=== PATIENT | male | born 1970 | race American Indian/Alaskan Native ===

== ENCOUNTER 2017-10-16 00:42 | Observation (INO) | payer OTHER ==
[2017-10-16] MEDS ORDERED: ASPIRIN PO ONE (00:59)
[2017-10-16 02:02] LABS: Basophils % (Auto) 0.2 % (0.0-1.8); Eosinophils # (Auto) 0.1 K/mm3 (0.0-0.4); Eosinophils % (Auto) 1.1 % (0.0-4.3); Hematocrit 43.9 % (35.5-45.6); Hemoglobin 14.6 gm/dl (11.8-15.2); Lymphocytes # (Auto) 1.8 K/mm3 (1.2-5.4); Lymphocytes % (Auto) 23.8 % (13.4-35.0); Mean Corpuscular HGB Conc 33 % (32-34); Mean Corpuscular Hemoglobin 26 pg (28-32); Mean Corpuscular Volume 79 fl (84-94); Monocytes # (Auto) 0.5 K/mm3 (0.0-0.8); Monocytes % (Auto) 6.9 % (0.0-7.3); Platelet Count 185 K/mm3 (140-440); Red Blood Count 5.53 M/mm3 (3.65-5.03); Red Cell Distribution Width 15.9 % (13.2-15.2)
[2017-10-16 02:11] LABS: BUN/Creatinine Ratio 14; Blood Urea Nitrogen 15 mg/dL (9-20); Calcium 8.9 mg/dL (8.4-10.2); Hemolysis Index 17
[2017-10-16 03:02] LABS: Lipase 39 units/L (13-60)
[2017-10-16 07:22] VITALS: BP 128/95
--- NOTE | 2017-10-16 07:23 | Emergency Department Report ---
ED Chest Pain HPI - General Chief Complaint: Chest Pain Stated Complaint: CHEST PAIN Time Seen by Provider: 10/16/17 07:01 Source: patient Mode of arrival: Ambulatory Limitations: No Limitations - History of Present Illness Initial Comments: Patient is a 47-year-old male who presents with complaints of chest pains 30 minutes prior to arrival. Patient states the pain is on the left side of his chest and nonradiating. Patient states the pain as a 7 out of 10. Patient states the pain is worse with movement and better with rest. He has past medical history of hypertension. She denies shortness of breath and fever and chills. MD Complaint: chest pain -: Sudden Pain Location: left chest Pain Radiation: none Severity: moderate Severity scale (0 -10): 7 Quality: pressure Consistency: constant Improves With: rest Worsens With: palpation, movement re: denies: nausea, vomting, diaphoresis, dyspnea, sense of impending doom Other Symptoms: denies: cough, fever, syncope, rash, acid taste in mouth, leg swelling, palpitations, burping Treatments Prior to Arrival: none Aspirin use within the Past 7 Days: (0) No - Related Data Home Medications Medication Instructions Recorded Confirmed Last Taken Amlodipine Besylate [Norvasc] 5 mg PO QDAY 10/16/17 10/16/17 Unknown Atenolol [Tenormin] 50 mg PO DAILY 10/16/17 10/16/17 Unknown Famotidine [Pepcid] 40 mg PO QHS 10/16/17 10/16/17 Unknown Previous Rx's Medication Instructions Recorded Last Taken Type Ibuprofen 400 mg PO Q8H PRN #20 tablet 10/16/17 Unknown Rx Allergies Allergy/AdvReac Type Severity Reaction Status Date / Time No Known Allergies Allergy Unverified 10/16/17 00:58 Heart Score - HEART Score History: Slightly suspicious EKG: Normal Age: 45-65 Risk factors: 1-2 risk factors Troponin: < normal limit HEART Score: 2 ED Review of Systems ROS: Stated complaint: CHEST PAIN Other details as noted in HPI Constitutional: denies: chills, fever Eyes: denies: eye pain, eye discharge, vision change ENT: denies: ear pain, throat pain Respiratory: denies: cough, shortness of breath, wheezing Cardiovascular: chest pain. denies: palpitations Endocrine: no symptoms reported Gastrointestinal: denies: abdominal pain, nausea, diarrhea Genitourinary: denies: urgency, dysuria Musculoskeletal: denies: back pain, joint swelling, arthralgia Skin: denies: rash, lesions Neurological: denies: headache, weakness, paresthesias Psychiatric: denies: anxiety, depression Hematological/Lymphatic: denies: easy bleeding, easy bruising ED Past Medical Hx - Past Medical History Previous Medical History?: Yes Hx Hypertension: Yes - Surgical History Past Surgical History?: Yes Additional Surgical History: hernia - Family History Family history: hypertension - Social History Smoking Status: Never Smoker Substance Use Type: None - Medications Home Medications: Home Medications Medication Instructions Recorded Confirmed Last Taken Type Amlodipine Besylate [Norvasc] 5 mg PO QDAY 10/16/17 10/16/17 Unknown History Atenolol [Tenormin] 50 mg PO DAILY 10/16/17 10/16/17 Unknown History Famotidine [Pepcid] 40 mg PO QHS 10/16/17 10/16/17 Unknown History Ibuprofen 400 mg PO Q8H PRN #20 tablet 10/16/17 Unknown Rx ED Physical Exam - General Limitations: No Limitations General appearance: alert, in no apparent distress - Head Head exam: Present: atraumatic, normocephalic - Eye Eye exam: Present: normal appearance - ENT ENT exam: Present: mucous membranes moist - Neck Neck exam: Present: normal inspection - Respiratory Respiratory exam: Present: normal lung sounds bilaterally, chest wall tenderness. Absent: respiratory distress - Cardiovascular Cardiovascular Exam: Present: regular rate, normal rhythm. Absent: systolic murmur, diastolic murmur, rubs, gallop - GI/Abdominal GI/Abdominal exam: Present: soft, normal bowel sounds - Rectal Rectal exam: Present: deferred - Extremities Exam Extremities exam: Present: normal inspection - Back Exam Back exam: Present: normal inspection - Neurological Exam Neurological exam: Present: alert, oriented X3 - Psychiatric Psychiatric exam: Present: normal affect, normal mood - Skin Skin exam: Present: warm, dry, intact, normal color. Absent: rash ED Course Vital Signs 10/16/17 10/16/17 10/16/17 00:56 02:59 03:00 Temperature 98.4 F Pulse Rate 80 68 62 Respiratory 17 19 17 Rate Blood Pressure 141/87 124/88 Blood Pressure [Left] O2 Sat by Pulse 97 97 98 Oximetry 10/16/17 10/16/17 03:01 07:21 Temperature 98.0 F Pulse Rate 62 Respiratory 18 12 Rate Blood Pressure Blood Pressure 128/95 [Left] O2 Sat by Pulse 98 100 Oximetry - Reevaluation(s) Reevaluation #1: Discussed plan with patient. Patient agreed to be admitted. We'll consult hospitalist. Hospitalist agreed to admit. 10/16/17 08:09 TORI score - Tori Score Age > 65: (0) No Aspirin use within the Past 7 Days: (0) No 3 or more CAD Risk Factors: (0) No 2 or more Angina events in past 24 hrs: (0) No Known CAD with more than 50% Stenosis: (0) No Elevated Cardiac Markers: (0) No ST Deviation Greater than 0.5mm: (0) No TORI Score: 0 ED Medical Decision Making - Lab Data Result diagrams: 10/16/17 01:31 10/16/17 01:31 - EKG Data -: EKG Interpreted by [facility] EKG shows normal: sinus rhythm, axis, intervals, QRS complexes, ST-T waves Rate: normal - EKG Data Interpretation: nonspecific ST-T wave long - Radiology Data Radiology results: pending - Medical Decision Making Vision 47-year-old male presents to emergency room with chest pain. Will admit patient for observation to rule out ACS. - Differential Diagnosis chest pain. ACS. Musculoskeletal. Chest wall pain. Critical care attestation.: If time is entered above; I have spent that time in minutes in the direct care of this critically ill patient, excluding procedure time. ED Disposition Clinical Impression: Chest pain Disposition: OP ADMIT IP TO THIS HOSP Is pt being admited?: Yes Does the pt Need Aspirin: No Condition: Fair Time of Disposition: 08:11
--- NOTE | 2017-10-16 08:37 | XRay Report ---
AP CHEST: HISTORY: chest pain No comparison. There is marked elevation of the left hemidiaphragm. It is unclear if this represents eventration or phrenic nerve paralysis. There is mild compression of the left lung base, otherwise, the lungs are clear. Heart and mediastinal structures are grossly normal. The thoracic cage is grossly intact. IMPRESSION: Marked elevation or eventration of the left hemidiaphragm. 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 If further evaluation is needed, 2 views of the chest or CT chest could be obtained.
--- NOTE | 2017-10-16 08:39 | History and Physical Report ---
History of Present Illness Date of examination: 10/16/17 Date of admission: 10/16/17 08:12 Chief complaint: Chest pain History of present illness: Patient with hypertension, obesity presents with chest pain. Left sided, 7/10, crampy pain, no radiation Past History Past Medical History: hypertension, other (Obesity) Past Surgical History: hernia repair Social history: single. denies: smoking, alcohol abuse, IV drug use Family history: CAD, hypertension Medications and Allergies Allergies Allergy/AdvReac Type Severity Reaction Status Date / Time No Known Allergies Allergy Unverified 10/16/17 00:58 Home Medications Medication Instructions Recorded Confirmed Last Taken Type Amlodipine Besylate [Norvasc] 5 mg PO QDAY 10/16/17 10/16/17 Unknown History Atenolol [Tenormin] 50 mg PO DAILY 10/16/17 10/16/17 Unknown History Famotidine [Pepcid] 40 mg PO QHS 10/16/17 10/16/17 Unknown History Exam - Physical Exam Narrative exam: General:Not in acute distress, lying in bed HEENT:Normocephalic, atraumatic Neck:supple,no JVD Lungs:Clear to auscultation, no rales , no wheeze Heart:S1 and S2 regular, no murmurs, rubs or gallop Abd: soft, non tender, non distended, normal bowel sounds Ext:no edema, no clubbing or cyanosis Neuro:Awake,alert,oriented x 3, moves all extremities, Psych:normal mood - Constitutional Vitals: Temp Pulse Resp BP Pulse Ox 98.0 F 62 12 128/95 100 10/16/17 07:21 10/16/17 07:21 10/16/17 07:21 10/16/17 07:21 10/16/17 07:21 Results - Labs CBC & Chem 7: 10/16/17 01:31 10/16/17 01:31 Labs: Abnormal lab results 10/16/17 10/16/17 Range/Units 01:31 01:31 RBC 5.53 H (3.65-5.03) M/mm3 MCV 79 L (84-94) fl MCH 26 L (28-32) pg RDW 15.9 H (13.2-15.2) % Glucose 129 H (75-100) mg/dL Assessment and Plan Chest pain. Admit to [facility], EKG shows early repolarization. Troponion neg x 3 Obtain stress test
[2017-10-16] MEDS ORDERED: ZOFRAN IV PRN (09:05)
[2017-10-16] MEDS ORDERED: SODIUM CHLORIDE FLUSH SYRINGE 10 ML IV PRN ×2 (09:05→09:06)
[2017-10-16] MEDS ORDERED: NITROSTAT SL PRN (09:06)
[2017-10-16] MEDS ORDERED: NORCO 5/325 PO PRN (10:00)
[2017-10-16] MEDS ORDERED: TYLENOL PO PRN (10:00)
[2017-10-16] MEDS ORDERED: SODIUM CHLORIDE FLUSH SYRINGE 10 ML IV SCH (10:00)
--- NOTE | 2017-10-16 16:00 | Consultation ---
History of Present Illness Consult date: 10/16/17 Consult reason: chest pain History of present illness: The patient is a 47-year-old man who presented to the hospital with atypical chest pain. The ECG was normal sinus rhythm with normal early repolarization changes. Enzymes were unremarkable. During his stress test today, he exercised for 6 minutes of Pancho protocol, with no chest pain. There are no ST changes of ischemia, no significant dysrhythmias. Thallium images were normal. Past History Past Medical History: hypertension, other (Obesity) Past Surgical History: hernia repair Social history: single. denies: smoking, alcohol abuse, IV drug use Family history: CAD, hypertension Medications and Allergies Allergies Allergy/AdvReac Type Severity Reaction Status Date / Time No Known Allergies Allergy Unverified 10/16/17 00:58 Home Medications Medication Instructions Recorded Confirmed Last Taken Type Amlodipine Besylate [Norvasc] 5 mg PO QDAY 10/16/17 10/16/17 Unknown History Atenolol [Tenormin] 50 mg PO DAILY 10/16/17 10/16/17 Unknown History Famotidine [Pepcid] 40 mg PO QHS 10/16/17 10/16/17 Unknown History Active Meds: Active Medications Acetaminophen (Tylenol) 650 mg PO Q4H PRN PRN Reason: Pain MILD(1-3)/Fever >100.5/CONRAD Acetaminophen/Hydrocodone Bitart (Roulette 5/325) 1 each PO Q6H PRN PRN Reason: Pain, Moderate (4-6) Ondansetron HCl (Zofran) 4 mg IV Q8H PRN PRN Reason: Nausea And Vomiting Sodium Chloride (Sodium Chloride Flush Syringe 10 Ml) 10 ml IV BID EARL Sodium Chloride (Sodium Chloride Flush Syringe 10 Ml) 10 ml IV PRN PRN PRN Reason: LINE FLUSH Review of Systems Cardiovascular: chest pain, no orthopnea, no palpitations, no rapid/irregular heart beat, no edema, no syncope, no lightheadedness, no shortness of breath Physical Examination Vital Signs Temp Pulse Resp BP Pulse Ox 98.4 F 80 17 141/87 97 10/16/17 00:56 10/16/17 00:56 10/16/17 00:56 10/16/17 00:56 10/16/17 00:56 General appearance: no acute distress HEENT: Positive: PERRL Neck: Positive: neck supple Cardiac: Positive: Reg Rate and Rhythm Lungs: Positive: Decreased Breath Sounds Neuro: Positive: Grossly Intact Abdomen: Positive: Soft Male genitourinary: Positive: deferred Skin: Positive: Clear Extremities: Absent: edema Results 10/16/17 01:31 10/16/17 01:31 CBC 10/16/17 Range/Units 01:31 WBC 7.4 (4.5-11.0) K/mm3 RBC 5.53 H (3.65-5.03) M/mm3 Hgb 14.6 (11.8-15.2) gm/dl Hct 43.9 (35.5-45.6) % Plt Count 185 (140-440) K/mm3 Lymph # 1.8 (1.2-5.4) K/mm3 [place] # 0.5 (0.0-0.8) K/mm3 Eos # 0.1 (0.0-0.4) K/mm3 Baso # 0.0 (0.0-0.1) K/mm3 Comprehensive Metabolic Panel 10/16/17 Range/Units 01:31 Sodium 140 (137-145) mmol/L Potassium 4.0 (3.6-5.0) mmol/L Chloride 98.6 (98-107) mmol/L Carbon Dioxide 30 (22-30) mmol/L BUN 15 (9-20) mg/dL Creatinine 1.1 (0.8-1.5) mg/dL Glucose 129 H (75-100) mg/dL Calcium 8.9 (8.4-10.2) mg/dL EKG interpretations - Telemetry EKG Rhythm: Sinus Rhythm Assessment and Plan - Patient Problems (1) Chest pain Current Visit: Yes Status: Acute Plan to address problem: Chest pain is atypical, EKG is normal, with normal early repolarization changes. Stress thallium is negative. No further cardiac workup is indicated, we'll sign off.
--- NOTE | 2017-10-16 16:11 | Discharge Summary ---
Providers - Providers Date of Admission: 10/16/17 08:12 Date of discharge: 10/16/17 Attending physician: ROBINSON SPARKS 10/16/17 08:54 Consult to Physician [CONS] Routine Comment: Consulting Provider: KEM FERREIRA Physician Instructions: Reason For Exam: Chest pain, abnormal EKG Primary care physician: ROBINSON MARMOLEJO Hospitalization Condition: Fair Disposition: DC-01 TO HOME OR SELFCARE Exam - Constitutional Vitals: Temp Pulse Resp BP Pulse Ox 98.0 F 62 12 128/95 100 10/16/17 07:21 10/16/17 07:21 10/16/17 07:21 10/16/17 07:21 10/16/17 07:21 Plan Activity: no restrictions Diet: low fat, low cholesterol, low salt Additional Instructions: 1.Follow up with PCP or [facility] in 1 week Prescriptions: Ibuprofen 400 mg PO Q8H PRN #20 tablet PRN Reason: Pain
[2017-10-17] MEDS ORDERED: ECOTRIN PO SCH (10:00)
--- NOTE | 2017-10-17 12:11 | Treadmill Report ---
THALLIUM STRESS TEST Left ventricular chamber size is within normal. Perfusion study demonstrates fairly homogeneous uptake of the tracer in all segments, no significant perfusion defects identified. Mild diaphragmatic attenuation artifact is noted. Gated analysis demonstrates normal left ventricular systolic function, ejection fraction of 54%. CONCLUSION: Normal myocardial perfusion study. JOB# [id number] CA/NTS
== END 2017-10-16 17:30 | disposition home or self-care (01) ==
LOC: ED 00:42 → 4A 08:12
PROVIDERS: ADMIT Internal Medicine; ATTEND Internal Medicine
DX: R07.89 Other chest pain (principal); I10 Essential (primary) hypertension; E66.9 Obesity, unspecified; Z68.33 Body mass index [BMI] 33.0-33.9, adult; Z82.49 Family history of ischemic heart disease and other diseases of the circulatory system
CPT/HCPCS: 36415; 71045; 78452; 80048; 82150; 83690; 84484; 85025; 93005; 93010; 93017; 99285; A9502; G0378

== ENCOUNTER 2018-09-02 14:37 | Emergency (ER) | payer OTHER ==
[2018-09-02 15:33] VITALS: BP 145/94
--- NOTE | 2018-09-02 15:37 | Emergency Department Report ---
Chief Complaint: High BP Stated Complaint: HBP Time Seen by Provider: 09/02/18 15:31 - HPI History of Present Illness: This is a 48 y.o. male that presents with elevated blood pressure 2 hours ago. Patient reports 3 episodes of elevated blood pressure. Patient sates medication recently changed by order entry technician. Patient had echo last Friday. - ROS Review of Systems: SOB - Exam Vital Signs: Vital Signs 09/02/18 15:31 Temperature 98.9 F Pulse Rate 83 Respiratory 16 Rate Blood Pressure 145/94 O2 Sat by Pulse 98 Oximetry MSE screening note: Focused history and physical exam performed. Due to findings the following was ordered: labs Fast track for further evaluation. ED Disposition for MSE Condition: Stable
[2018-09-02 16:04] LABS: Basophils % (Auto) 0.3 % (0.0-1.8); Eosinophils % (Auto) 0.9 % (0.0-4.3); Hematocrit 43.8 % (35.5-45.6); Hemoglobin 14.2 gm/dl (11.8-15.2); Lymphocytes # (Auto) 1.2 K/mm3 (1.2-5.4); Lymphocytes % (Auto) 24.3 % (13.4-35.0); Mean Corpuscular HGB Conc 32 % (32-34); Mean Corpuscular Volume 81 fl (84-94); Monocytes # (Auto) 0.3 K/mm3 (0.0-0.8); Monocytes % (Auto) 6.1 % (0.0-7.3); Platelet Count 176 K/mm3 (140-440); Red Blood Count 5.41 M/mm3 (3.65-5.03); Red Cell Distribution Width 15.6 % (13.2-15.2)
[2018-09-02 16:36] LABS: BUN/Creatinine Ratio 9; Blood Urea Nitrogen 11 mg/dL (9-20); Calcium 9.4 mg/dL (8.4-10.2); Hemolysis Index 21
[2018-09-02 16:58] LABS: Alanine Aminotransferase 19 units/L (7-56); Albumin 4.5 g/dL (3.9-5)
--- NOTE | 2018-09-02 18:14 | Emergency Department Report ---
ED General Adult HPI - General Chief complaint: High BP Stated complaint: HBP Time Seen by Provider: 09/02/18 15:31 Source: patient Mode of arrival: Ambulatory Limitations: No Limitations - History of Present Illness Initial comments: This is a 48-year-old male nontoxic, well nourished in appearance, no acute signs of distress presents to the ED with c/o of elevated blood pressure. Patient stated that the past 3 days he has been having intermittent elevated blood pressure. Patient stated that he does have a primary care doctor and was started on Cartia. Patient denies any headache. Patient denies any symptoms. Patient stated he is asymptomatic. Patient denies any chest pain, shortness of breathe, fever, chills, headache, nausea, vomiting, chest pain or shortness of breathe. Patient denies any allergies. -: days(s) (3) Severity scale (0 -10): 0 Improves with: none Worsens with: none Associated Symptoms: denies other symptoms. denies: confusion, chest pain, cough, diaphoresis, fever/chills, headaches, malaise, nausea/vomiting, rash, seizure, shortness of breath, syncope, weakness Treatments Prior to Arrival: none - Related Data Home Medications Medication Instructions Recorded Confirmed Last Taken Amlodipine Besylate [Norvasc] 5 mg PO QDAY 10/16/17 10/16/17 Unknown Atenolol [Tenormin] 50 mg PO DAILY 10/16/17 10/16/17 Unknown Famotidine [Pepcid] 40 mg PO QHS 10/16/17 10/16/17 Unknown Previous Rx's Medication Instructions Recorded Last Taken Type Ibuprofen 400 mg PO Q8H PRN #20 tablet 10/16/17 Unknown Rx Allergies Allergy/AdvReac Type Severity Reaction Status Date / Time No Known Allergies Allergy Verified 06/06/18 09:42 ED Review of Systems ROS: Stated complaint: HBP Other details as noted in HPI Constitutional: denies: chills, fever Eyes: denies: eye pain, eye discharge, vision change ENT: denies: ear pain, throat pain Respiratory: denies: cough, shortness of breath, wheezing Cardiovascular: denies: chest pain, palpitations Endocrine: no symptoms reported Gastrointestinal: denies: abdominal pain, nausea, diarrhea Genitourinary: denies: urgency, dysuria Musculoskeletal: denies: back pain, joint swelling, arthralgia Skin: denies: rash, lesions Neurological: denies: headache, weakness, paresthesias Psychiatric: denies: anxiety, depression Hematological/Lymphatic: denies: easy bleeding, easy bruising ED Past Medical Hx - Past Medical History Previous Medical History?: Yes Hx Hypertension: Yes Hx Asthma: No - Surgical History Past Surgical History?: Yes Additional Surgical History: hernia - Social History Smoking Status: Unknown if ever smoked Substance Use Type: None - Medications Home Medications: Home Medications Medication Instructions Recorded Confirmed Last Taken Type Amlodipine Besylate [Norvasc] 5 mg PO QDAY 10/16/17 10/16/17 Unknown History Atenolol [Tenormin] 50 mg PO DAILY 10/16/17 10/16/17 Unknown History Famotidine [Pepcid] 40 mg PO QHS 10/16/17 10/16/17 Unknown History Ibuprofen 400 mg PO Q8H PRN #20 tablet 10/16/17 Unknown Rx ED Physical Exam - General Limitations: No Limitations General appearance: alert, in no apparent distress - Head Head exam: Present: atraumatic, normocephalic - Neck Neck exam: Present: normal inspection, full ROM - Respiratory Respiratory exam: Present: normal lung sounds bilaterally. Absent: respiratory distress, wheezes, rales, rhonchi, stridor, chest wall tenderness, accessory muscle use, decreased breath sounds, prolonged expiratory - Cardiovascular Cardiovascular Exam: Present: regular rate, normal rhythm, normal heart sounds. Absent: bradycardia, tachycardia, irregular rhythm, systolic murmur, diastolic murmur, rubs, gallop - Extremities Exam Extremities exam: Present: normal inspection, full ROM - Back Exam Back exam: Present: normal inspection, full ROM - Neurological Exam Neurological exam: Present: alert, oriented X3 - Psychiatric Psychiatric exam: Present: normal affect, normal mood - Skin Skin exam: Present: warm, dry, intact, normal color. Absent: rash ED Course Vital Signs 09/02/18 15:31 Temperature 98.9 F Pulse Rate 83 Respiratory 16 Rate Blood Pressure 145/94 O2 Sat by Pulse 98 Oximetry - Reevaluation(s) Reevaluation #1: 09/02/18 18:11 Patient is speaking in full sentences with no signs of distress noted. ED Medical Decision Making - Lab Data Result diagrams: 09/02/18 15:42 09/02/18 15:42 - Medical Decision Making This is a 48-year-old male that presents with HTN. Patient was examined me and patient is stable. Patients blood pressure today is 145/94. Patient is asymptomatic. Labs are unremarkable. Patient was instructed to continue taking medication for blood pressure as prescribed by his primary care doctor. The patient was educated on low-sodium diet and exercise. He was instructed to keep a daily diary of blood pressure and to present it to primary care doctor in 3-5 days. Patient was instructed to Follow-up with a primary care doctor in 3-5 days or if symptoms worsen and continue return to emergency room as soon as possible. At time of discharge, the patient does not seem toxic or ill in appea adrienne. No acute signs of distress noted. Patient agrees to discharge treatment plan of care. No further questions noted by the patient. Critical care attestation.: If time is entered above; I have spent that time in minutes in the direct care of this critically ill patient, excluding procedure time. ED Disposition Clinical Impression: Hypertension Qualifiers: Hypertension type: unspecified Qualified Code(s): I10 - Essential (primary) hypertension Disposition: DC-01 TO HOME OR SELFCARE Is pt being admited?: No Does the pt Need Aspirin: No Condition: Stable Instructions: Hypertension (ED), Low Sodium Diet (ED) Additional Instructions: Follow-up with a primary care doctor in 3-5 days or if symptoms worsen and con tinue return to emergency room as soon as possible. Keep a daily diary of your blood pressure and presented to primary care doctor. Referrals: CHESTER MORALES MD [Referring] - 3-5 Days TE BRENNAN MD [Staff Physician] - 3-5 Days [facility] [Outside] - 3-5 Days [facility] [Outside] - 3-5 Days Forms: Work/School Release Form(ED)
== END 2018-09-02 18:23 | disposition home or self-care (01) ==
LOC: ED 14:37
DX: I10 Essential (primary) hypertension (principal)
CPT/HCPCS: 36415; 80053; 85025; 99283

== ENCOUNTER 2020-06-28 17:28 | Emergency (ER) | payer OTHER ==
[2020-06-28] MEDS ORDERED: ASPIRIN 325 MG TAB PO ONE (17:35)
--- NOTE | 2020-06-28 17:35 | Event Note ---
ED Screening Note Date of service: 06/28/20 Time: 17:35 ED Screening Note: This is a 50-year-old male presents emergency department chief complaint of left upper chest pain intermittently over the past few days. He has history of mitral valve prolapse. He reports shortness of breath worse with exertion. This initial assessment/diagnostic orders/clinical plan/treatment(s) is/are subject to change based on patients health status, clinical progression and re- assessment by fellow clinical providers in the ED. Further treatment and workup at subsequent clinical providers discretion. Patient/guardian urged not to elope from the ED as their condition may be serious if not clinically assessed and managed. Initial orders include: CBC, CMP, troponin,, PT, PTT EKG, chest x-ray
[2020-06-28 17:48] VITALS: BP 147/91
[2020-06-28 17:59] LABS: Basophils % (Auto) 0.2 % (0.0-1.8); Eosinophils # (Auto) 0.1 K/mm3 (0.0-0.4); Eosinophils % (Auto) 1.2 % (0.0-4.3); Hematocrit 46.5 % (35.5-45.6); Hemoglobin 15.3 gm/dl (11.8-15.2); Mean Corpuscular HGB Conc 33 % (32-34); Mean Corpuscular Volume 80 fl (84-94); Monocytes # (Auto) 0.5 K/mm3 (0.0-0.8); Monocytes % (Auto) 6.7 % (0.0-7.3); Platelet Count 211 K/mm3 (140-440); Red Blood Count 5.82 M/mm3 (3.65-5.03); Red Cell Distribution Width 16.2 % (13.2-15.2)
[2020-06-28 18:08] LABS: Albumin 4.6 g/dL (3.9-5)
[2020-06-28 18:10] LABS: Partial Thromboplastin Time 28.6 Sec. (24.2-36.6)
--- NOTE | 2020-06-28 18:23 | XRay Report ---
CHEST 2 VIEWS INDICATION / CLINICAL INFORMATION: Chest Pain. COMPARISON: 10/16/2017 FINDINGS: SUPPORT DEVICES: None. HEART / MEDIASTINUM: No significant abnormality. LUNGS / PLEURA: No significant pulmonary or pleural abnormality. No pneumothorax. ADDITIONAL FINDINGS: There is elevation of the left hemidiaphragm which is unchanged. IMPRESSION: 1. No acute findings. No significant change Signer Name: Tre Mora MD Signed: 06/28/2020 6:19 PM Workstation Name: [id number]
--- NOTE | 2020-06-28 22:02 | Emergency Department Report ---
ED Chest Pain HPI - General Chief Complaint: Chest Pain Stated Complaint: SOB/CP/NECK PAIN Time Seen by Provider: 06/28/20 20:40 Source: patient, old records reviewed Mode of arrival: Ambulatory Limitations: No Limitations - History of Present Illness Initial Comments: 50-year-old male with a past medical history of hypertension and mitral valve prolapse presents to the hospital complaining of ongoing shortness of breath and fatigue x1 month and left upper poking intermittent chest pain just under the clavicle. Patient states symptoms have been progressively worsening tired. He now is persistently feeling tired and fatigue. There are not any aggravating or alleviating factors related to his chest pain. He denies nausea, vomiting, diaphoresis, calf tenderness, leg edema, recent travel, history of PE/DVT. Patient saw his aircraft accessories mechanic associated with [facility] 1 week ago and states he had a EKG and blood test performed. He is still waiting on reports regarding results. As per medical record review patient had a negative stress test performed here September 2017 and has not had a more recent stress test. Patient does not smoke. Positive family history of CAD. Patient does not consistently take aspirin daily but is compliant with his BP medication. Patient denies cough, cold symptoms, fever, or covid infection or known exposure. Pt does endorse some history of snoring and waking up intermittently throughout the night - Related Data Home Medications Medication Instructions Recorded Confirmed Last Taken Amlodipine Besylate [Norvasc] 5 mg PO QDAY 10/16/17 10/16/17 Unknown Famotidine [Pepcid] 40 mg PO QHS 10/16/17 10/16/17 Unknown atenoloL [Tenormin] 50 mg PO DAILY 10/16/17 10/16/17 Unknown Previous Rx's Medication Instructions Recorded Last Taken Type Ibuprofen [Ibuprofen 400] 400 mg PO Q8H PRN #20 tablet 10/16/17 Unknown Rx Aspirin 325 mg PO ONCE #30 tablet 06/28/20 Unknown Rx Allergies Allergy/AdvReac Type Severity Reaction Status Date / Time No Known Allergies Allergy Verified 06/28/20 17:40 Heart Score - HEART Score History: Slightly suspicious EKG: Normal Age: 45-65 Risk factors: 1-2 risk factors Troponin: < normal limit HEART Score: 2 ED Review of Systems ROS: Stated complaint: SOB/CP/NECK PAIN Other details as noted in HPI Comment: All other systems reviewed and negative ED Past Medical Hx - Past Medical History Hx Hypertension: Yes Hx Asthma: No - Surgical History Additional Surgical History: hernia - Social History Smoking Status: Never Smoker Substance Use Type: None - Medications Home Medications: Home Medications Medication Instructions Recorded Confirmed Last Taken Type Amlodipine Besylate [Norvasc] 5 mg PO QDAY 10/16/17 10/16/17 Unknown History Famotidine [Pepcid] 40 mg PO QHS 10/16/17 10/16/17 Unknown History Ibuprofen [Ibuprofen 400] 400 mg PO Q8H PRN #20 tablet 10/16/17 Unknown Rx atenoloL [Tenormin] 50 mg PO DAILY 10/16/17 10/16/17 Unknown History Aspirin 325 mg PO ONCE #30 tablet 06/28/20 Unknown Rx ED Physical Exam - General Limitations: No Limitations - Other Other exam information: General: No acute distress Head: Atraumatic Eyes: normal appearance ENT: Moist mucous membranes Neck: Normal appearance, no midline tenderness Chest: Clear to auscultation bilaterally CV: Regular rate and rhythm Abdomen: Soft, normal bowel sounds, nontender, nondistended, no rebound or guarding Back: Normal inspection Extremity: Normal inspection, full range of motion, no calf tenderness or leg edema Neuro: Alert O x 3, no facial asymmetry, speech clear, no gross motor sensory deficit Psych: Appropriate behavior Skin: No rash ED Course Vital Signs 06/28/20 17:47 Temperature 99.0 F Pulse Rate 80 Respiratory 18 Rate Blood Pressure 147/91 O2 Sat by Pulse 97 Oximetry TORI score - Tori Score Age > 65: (0) No Aspirin use within the Past 7 Days: (0) No 3 or more CAD Risk Factors: (0) No 2 or more Angina events in past 24 hrs: (0) No Known CAD with more than 50% Stenosis: (0) No Elevated Cardiac Markers: (0) No ST Deviation Greater than 0.5mm: (0) No TORI Score: 0 ED Medical Decision Making - Lab Data Result diagrams: 06/28/20 17:44 06/28/20 17:44 Lab Results 06/28/20 06/28/20 06/28/20 Range/Units 17:44 17:44 17:44 WBC 7.2 (4.5-11.0) K/mm3 RBC 5.82 H (3.65-5.03) M/mm3 Hgb 15.3 H (11.8-15.2) gm/dl Hct 46.5 H (35.5-45.6) % MCV 80 L (84-94) fl MCH 26 L (28-32) pg MCHC 33 (32-34) % RDW 16.2 H (13.2-15.2) % Plt Count 211 (140-440) K/mm3 Lymph % (Auto) 28.0 (13.4-35.0) % Anson % (Auto) 6.7 (0.0-7.3) % Eos % (Auto) 1.2 (0.0-4.3) % Baso % (Auto) 0.2 (0.0-1.8) % Lymph # (Auto) 2.0 (1.2-5.4) K/mm3 Anson # (Auto) 0.5 (0.0-0.8) K/mm3 Eos # (Auto) 0.1 (0.0-0.4) K/mm3 Baso # (Auto) 0.0 (0.0-0.1) K/mm3 Seg Neutrophils % 63.9 (40.0-70.0) % Seg Neutrophils # 4.6 (1.8-7.7) K/mm3 PT 13.0 (12.2-14.9) Sec. INR 1.00 (0.87-1.13) APTT 28.6 (24.2-36.6) Sec. D-Dimer (0-234) ng/mlDDU Sodium 141 (137-145) mmol/L Potassium 4.5 (3.6-5.0) mmol/L Chloride 99.3 (98-107) mmol/L Carbon Dioxide 32 H (22-30) mmol/L Anion Gap 14 mmol/L BUN 16 (9-20) mg/dL Creatinine 1.6 H (0.8-1.3) mg/dL Estimated GFR 56 ml/min BUN/Creatinine Ratio 10 % Glucose 132 H (75-100) mg/dL Calcium 10.0 (8.4-10.2) mg/dL Total Bilirubin 0.40 (0.1-1.2) mg/dL AST 29 (5-40) units/L ALT 28 (7-56) units/L Alkaline Phosphatase 45 (35-129) units/L Troponin T (0.00-0.029) ng/mL Total Protein 7.4 (6.3-8.2) g/dL Albumin 4.6 (3.9-5) g/dL Albumin/Globulin Ratio 1.6 % 06/28/20 06/28/20 06/28/20 Range/Units 17:44 17:44 21:02 WBC (4.5-11.0) K/mm3 RBC (3.65-5.03) M/mm3 Hgb (11.8-15.2) gm/dl Hct (35.5-45.6) % MCV (84-94) fl MCH (28-32) pg MCHC (32-34) % RDW (13.2-15.2) % Plt Count (140-440) K/mm3 Lymph % (Auto) (13.4-35.0) % Anson % (Auto) (0.0-7.3) % Eos % (Auto) (0.0-4.3) % Baso % (Auto) (0.0-1.8) % Lymph # (Auto) (1.2-5.4) K/mm3 Anson # (Auto) (0.0-0.8) K/mm3 Eos # (Auto) (0.0-0.4) K/mm3 Baso # (Auto) (0.0-0.1) K/mm3 Seg Neutrophils % (40.0-70.0) % Seg Neutrophils # (1.8-7.7) K/mm3 PT (12.2-14.9) Sec. INR (0.87-1.13) APTT (24.2-36.6) Sec. D-Dimer < 135 (0-234) ng/mlDDU Sodium (137-145) mmol/L Potassium (3.6-5.0) mmol/L Chloride (98-107) mmol/L Carbon Dioxide (22-30) mmol/L Anion Gap mmol/L BUN (9-20) mg/dL Creatinine (0.8-1.3) mg/dL Estimated GFR ml/min BUN/Creatinine Ratio % Glucose (75-100) mg/dL Calcium (8.4-10.2) mg/dL Total Bilirubin (0.1-1.2) mg/dL AST (5-40) units/L ALT (7-56) units/L Alkaline Phosphatase (35-129) units/L Troponin T < 0.010 < 0.010 (0.00-0.029) ng/mL Total Protein (6.3-8.2) g/dL Albumin (3.9-5) g/dL Albumin/Globulin Ratio % - EKG Data -: EKG Interpreted by Me (Possible posterior infarct with early R wave progression) EKG shows normal: sinus rhythm, ST-T waves (No ST elevation MO) Rate: normal - EKG Data When compared to previous EKG there are: no significant change (Compared to previous September 2017 (previous did show ST elevation suggestive of pericarditis now resolved)) - Radiology Data Radiology results: report reviewed CHEST 2 VIEWS INDICATION / CLINICAL INFORMATION: Chest Pain. COMPARISON: 10/16/2017 FINDINGS: SUPPORT DEVICES: None. HEART / MEDIASTINUM: No significant abnormality. LUNGS / PLEURA: No significant pulmonary or pleural abnormality. No pneumothorax. ADDITIONAL FINDINGS: There is elevation of the left hemidiaphragm which is unch anged. IMPRESSION: 1. No acute findings. No significant change - Medical Decision Making 50-year-old male presents to the hospital with 1 week of intermittent progressiv e worsening shortness of breath and fatigue with poking intermittent pain to his left upper chest under his clavicle. Patient has low Wells criteria for pulmonary embolism with a negative D-dimer. Patient also has EKG without ischemia with negative troponin x2 with a low heart score and a negative stress test within 3 years. Chest x-ray negative. Mild creatinine elevation noted compared to previous value on record from 2 years ago. Patient will be discharged on aspirin daily and instructed to follow back up with his aircraft accessories mechanic for further cardiac work-up as well as PMD for sleep apnea testing. Patient provided a copy of his labs and chest x-ray to take to his doctors for further monitoring of his kidney function and to continue his outpatient work- up Critical Care Time: No Critical care attestation.: If time is entered above; I have spent that time in minutes in the direct care of this critically ill patient, excluding procedure time. ED Disposition Clinical Impression: Dyspnea, Fatigue, Atypical chest pain, Mild renal insufficiency Disposition: TO HOME OR SELFCARE Is pt being admited?: No Does the pt Need Aspirin: No Condition: Stable Instructions: Chest Pain (ED), Shortness of Breath, Adult, Nonspecific Chest Pain, Adult, Preventing Chronic Kidney Disease Additional Instructions: Take the medication as prescribed. Follow-up with your doctor or doctor/clinic provided. Return if symptoms worsen as indicated by your discharge instructions. Take the copy of your labs and x-ray results to your doctor for follow-up. Prescriptions: Aspirin 325 mg PO ONCE #30 tablet Referrals: MARY PELAEZ MD [Primary Care Provider] - 3-5 Days your, aircraft accessories mechanic [Other] - 3-5 Days Time of Disposition: 22:21
== END 2020-06-28 22:30 | disposition home or self-care (01) ==
LOC: ED 17:28
DX: R06.00 Dyspnea, unspecified (principal); R07.89 Other chest pain; N28.9 Disorder of kidney and ureter, unspecified; I10 Essential (primary) hypertension; Z79.899 Other long term (current) drug therapy; Z79.82 Long term (current) use of aspirin
CPT/HCPCS: 36415; 71046; 80053; 84484; 85025; 85379; 85610; 85730; 93005

== ENCOUNTER 2021-02-03 16:00 | Emergency (ER) | payer OTHER ==
[2021-02-03 18:04] VITALS: BP 133/84
== END 2021-02-03 22:10 ==
LOC: ED 16:00
DX: R06.02 Shortness of breath (principal); R19.7 Diarrhea, unspecified; Z53.21 Procedure and treatment not carried out due to patient leaving prior to being seen by health care provider

== ENCOUNTER 2021-02-05 08:56 | Emergency (ER) | payer OTHER ==
--- NOTE | 2021-02-05 12:34 | Emergency Department Report ---
ED Fever HPI - General Chief Complaint: Dyspnea/Respdistress Stated Complaint: SOB/NAUSEA PUI?: Yes Time Seen by Provider: 02/05/21 12:30 Source: patient Exam Limitations: no limitations - History of Present Illness Initial Comments: Chief complaint: "I just feel so bad." HPI: This is a 50-year-old male with history of hypertension has had Covid symptoms for the past 11 days. He works as a carpenter. However he contracted COVID-19 infection from his sons who attended a summer camp. His main concern is poor appetite. He can only eat 2 bites of food at a time. He has generalized malaise. He has persistent cough, diarrhea and sore throat. He has loss of taste or smell. Fever headache has resolved. He is not vaccinated against COVID-19. Timing/Duration: other (11 days of symptoms positive COVID-19 test local testing site) Fever Severity/Quality: subjective Associated Symptoms: cough, other (Malaise poor appetite diarrhea) ED Review of Systems ROS: Stated complaint: SOB/NAUSEA Other details as noted in HPI Comment: All other systems reviewed and negative Constitutional: malaise ENT: throat pain Respiratory: cough Gastrointestinal: diarrhea ED Past Medical Hx - Past Medical History Previous Medical History?: Yes Hx Hypertension: Yes Hx Asthma: No - Surgical History Past Surgical History?: Yes Additional Surgical History: hernia - Social History Smoking Status: Never Smoker Substance Use Type: None - Medications Home Medications: Home Medications Medication Instructions Recorded Confirmed Last Taken Type Amlodipine Besylate [Norvasc] 5 mg PO QDAY 10/16/17 10/16/17 Unknown History Famotidine [Pepcid] 40 mg PO QHS 10/16/17 10/16/17 Unknown History Ibuprofen [Ibuprofen 400] 400 mg PO Q8H PRN #20 tablet 10/16/17 Unknown Rx atenoloL [Tenormin] 50 mg PO DAILY 10/16/17 10/16/17 Unknown History Aspirin 325 mg PO ONCE #30 tablet 06/28/20 Unknown Rx ED Physical Exam - General Limitations: No Limitations General appearance: alert, in no apparent distress, other (Nontoxic-appearing, pleasant, appears comfortable) - Head Head exam: Present: atraumatic, normocephalic - Eye Eye exam: Present: normal appearance - ENT ENT exam: Present: mucous membranes moist - Neck Neck exam: Present: normal inspection, full ROM - Respiratory Respiratory exam: Present: normal lung sounds bilaterally. Absent: respiratory distress, wheezes, rales, rhonchi - Cardiovascular Cardiovascular Exam: Present: regular rate, normal rhythm, normal heart sounds. Absent: systolic murmur, diastolic murmur, rubs, gallop - GI/Abdominal GI/Abdominal exam: Present: soft, normal bowel sounds. Absent: distended, tenderness, guarding, rebound - Rectal Rectal exam: Present: deferred - Extremities Exam Extremities exam: Present: normal inspection - Back Exam Back exam: Present: normal inspection - Neurological Exam Neurological exam: Present: alert, oriented X3, normal gait - Psychiatric Psychiatric exam: Present: normal affect, normal mood - Skin Skin exam: Present: warm, dry, intact, normal color. Absent: rash ED Medical Decision Making - Medical Decision Making COVID-19 infection: Patient had positive COVID-19 test at local testing site. Patient given verbal and written education. I recommended [id number] supportive care such as antidiarrheal agents. Also recommended rest and hydration. Recommended vaccination against COVID-19. Critical care attestation.: If time is entered above; I have spent that time in minutes in the direct care of this critically ill patient, excluding procedure time. ED Disposition Clinical Impression: COVID-19 Disposition: 01 HOME / SELF CARE / HOMELESS Is pt being admited?: No Does the pt Need Aspirin: No Condition: Stable Instructions: COVID-19 Frequently Asked Questions, COVID-19 Referrals: MARY PELAEZ MD [Primary Care Provider] - 3-5 Days
== END 2021-02-05 12:44 | disposition home or self-care (01) ==
LOC: ED 08:56
DX: U07.1 COVID-19 (principal); I10 Essential (primary) hypertension; Z98.890 Other specified postprocedural states
CPT/HCPCS: 99281